=== PATIENT | male | born 1960 | race Caucasian/White ===

== ENCOUNTER 2024-03-10 20:34 | Inpatient (IN) | payer OTHER ==
--- OUTSIDE RECORDS SUMMARY | 2024-03-10 20:37 | XMS REPORT | Continuity of Care Document ---
Author Name Unknown Address [address] [facility] [address] [place] [address] [facility] thconnect Address [address] [facility] [address] [place] [address] Care Team Providers Care Ticket Maker Name Role Phone [phone] Primary Care Physician Unavailab le SYSTEM, PROVIDER NOT IN Attending Clinician Unav ailable Campaigns, Generic Provider Attending Clinician Unavailable EILEEN AHN Attending Clinician Unavailable NEYMAR SIM Attending Clinician Unavailable EILEEN AHN Admitting Clinician Unavailable Payers Payer Name Policy Type Policy Number Effective Date Expirati on Date Source [id number] 2015 00:00:00 [facility] [id number] 2000 00:00:00 Problems Condition Name Condition Details Condition Category Status Onset Date Resolution Date Last Treatment Date Treating Clinician Comments Source Obesity (BMI 30.0-34.9) Obesity (BMI 30.0-34.9) Disease Active 8-30 00:00: 00 [facility] Hypertensi on Hypertensi on Disease Active 1-04 00:00: 00 Overview: Formattin g of this note might be different from the original. Last Assessmen t & Plan: He reports near normal BP at home. Continue present treatment and will observe for any trend in future visits. [facility] Mild persistent asthma without complicati on Mild persistent asthma without complicati on Disease Active 9-16 00:00: 00 Overview: Formattin g of this note might be different from the original. Last Assessmen t & Plan: Presently sounds fine but based on his complaint of very frequent chest tightness and occasiona l wheezing over the past months will have him start daily QVAR inhalatio ns. He will bulk picker another albuterol inhaler also. 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 Last Assessmen t & Plan: Formattin g of this note might be different from the original. Diabetes is worsening . Reminded to bring in blood sugar diary at next visit. Dietary recommend ations for ADA diet. Regular aerobic exercise. Discussed foot care. Reminded to get yearly retinal exam. diabetic educator referral. Nutrition ist referral. Diabetes will be reassesse d in 1 month. [facility] Seasonal allergies Seasonal allergies Disease Active 09-12 00:00: 00 Overview: Formattin g of this note might be different from the original. Last Assessmen t & Plan: For now he will discontin ue the claritin and see if symptoms re-emerge . [facility] Nicotine dependence Nicotine dependence Disease Active 07-15 00:00: 00 [facility] Panic disorder with agoraphobi a Panic disorder with agoraphobi a Disease Active 07-15 00:00: 00 [facility] Generalize d osteoarthr itis Generalize d osteoarthr itis Disease Active 07-19 00:00: 00 [facility] Sleep apnea, obstructiv e Sleep apnea, obstructiv e Disease Active 07-19 00:00: 00 [facility] Mixed hyperlipid emia Mixed hyperlipid emia Disease Active 07-10 00:00: 00 Overview: Formattin g of this note might be different from the original. Last Assessmen t & Plan: There is some question as to whether he was on atorvasta tin in the past but based on low HDL and high LDL (146) will start Atorvasta tin 20mg now. [facility] Vitamin D3 deficiency Vitamin D3 deficiency Disease Active - 00:00: 00 Overview: Formattin g of this note might be different from the original. Last Assessmen t & Plan: Formattin g of this note might be different from the original. Recommend vitamin D3 4000 units per day for 3 months than decrease to maintenan ce dose of 2000 units per day, will repeat annually. [facility] History of papillary adenocarci noma of thyroid History of papillary adenocarci noma of thyroid Disease Active 2009-04 2- 00:00: 00 [facility] Allergies, Adverse Reactions, Alerts Allergy Name Allergy Type Status Severity Reaction(s) Onset Date Inactive Date Treating Clinician Comments Source NO KNOWN ALLERGIE S Drug Class Active [facility] Social History Social Habit Start Date Stop Date Quantity Comments Source History of tobacco use Smokes tobacco daily [facility] Tobacco use and exposure 2019-08-26 00:00:00 2019-08-26 00:00:00 Smokeless tobacco non-user [facility] History of Social function 2019-08-26 00:00:00 2019-08-26 00:00:00 [facility] Sex Ass[birth year] At 1960 00:00:00 1960 00:00:00 [facility] Smoking Status Start Date Stop Date Source Smokes tobacco daily 2019-08-26 00:00:00 [facility] Medications Ordered Medication Name Filled Medication Name Start Date Stop Date Current Medication? Ordering Clinician Indication Dosage Frequency Signature (SIG) Comments Components Source KCL (KLOR-CON M20) tablet 20 mEq 08-02 14:00: 00 Yes 20meq 20 mEq, Oral, DAILY, First dose on Sun08/03/23 at 0900, Until Discontinu ed, Routine [facility] iopamidol (ISOVUE 370-500 mL) injection 85 mL 08-01 21:00: 00 08-01 21:00 :00 No [id number] 85mL 85 mL, Intravenou s, ONCE, 1 dose, On Sary 08/02/23 at 1600, Routine [facility] sodium chloride (NS) injection 5 mL 08-01 18:35: 54 Yes 5mL 5 mL, Intravenou s, PRN, Starting on Sary 08/02/23 at 1335, Until Discontinu ed, Routine, IV line flushing [facility] amoxicillin -clavulanat e 875-125 mg per tablet 08-31 00:00: 00 Yes [id number] 1{tbl} Take 1 tablet by mouth every 12 (twelve) hours. [facility] atorvastati n 10 mg tablet 12-18 00:00: 00 Yes 1 (one) time each day at the same time. [facility] amLODIPine 10 mg tablet 2017-04 00:00: 00 Yes Take 1 tab daily for blood pressure [facility] levothyroxi ne (SYNTHROID) 112 mcg tablet 2016-04 00:00: 00 Yes Take 2-tablet(s ) 6-days per week and take 1-tablets( s) 1-days per week [facility] metFORMIN 500 mg tablet 10-12 00:00: 00 Yes every 12 (twelve) hours. [facility] Vital Signs Vital Name Observation Time Observation Value Comments S ource Systolic blood pressure 2023-08-02 20:23:00 157 mm[Hg] [facility] Diastolic blood pressure 2023-08-02 20:23:00 94 mm[Hg] [facility] Heart rate 2023-08-02 20:23:00 65 /min [facility] Respiratory rate 2023-08-02 20:23:00 16 /min [facility] Oxygen saturation in Arterial blood by Pulse oximetry 2023-08-02 20:23:00 98 /min [facility] Body temperature 2023-08-02 18:35:00 36.61 Karla [facility] Body height 2023-08-02 18:35:00 177.8 cm [facility] Body weight 2023-08-02 18:35:00 97.886 kg [facility] BMI 2023-08-02 18:35:00 30.96 kg/m2 [facility] Procedures Procedure Date / Time Performed Performing Clinicia n Source CT ABDOMEN PELVIS W CONTRAST 2023-08-02 20:04:04 Eileen Ahn [facility] LIPASE 2023-08-02 19:10:00 Eileen Ahn [facility] PROSTATIC SPECIFIC ANTIGEN 2023-08-02 19:10:00 Eileen Ahn [facility] COMP. METABOLIC PANEL (00571) 2023-08-02 19:10:00 Eileen Ahn [facility] CBC WITH DIFF 2023-08-02 19:10:00 [facility] 2023-08-02 19:10:00 Eileen Ahn [facility] Encounters Start Date/Time End Date/Time Encounter Type Admission Type Attending Clinicians Care Facility Care Department Encounter ID Source 2021-02-20 18:18:27 Emergency [facility] [id number] [facility] 2020-08-24 15:00:09 Outpatient SYSTEM, PROVIDER CYR[facility] BRIDGES [id number] MD Moses payne 2023-08-15 00:00:00 2023-08-15 00:00:00 Letter (Out) Campaigns, Generic Provider [facility] 1..840.114 [id number] [facility] 2023-08-02 13:39:00 2023-08-02 16:19:00 Emergency X EILEEN AHN [facility] ERT [id number] [facility] 2023-08-02 13:39:00 2023-08-02 16:19:00 Emergency Eileen Ahn [facility] 1..840.114 [id number] [facility] 2023-08-02 13:20:00 2023-08-02 13:20:00 Outpatient R [facility] [id number] [facility] 2020-08-23 16:03:38 2020-08-23 16:36:32 Outpatient NEYMAR SOLIS [facility] [id number] MD Moses payne 2020-08-09 13:17:06 2020-08-09 23:59:00 Outpatient NEYMAR SOLIS [facility] [id number] MD Moses payne 2020-08-09 13:29:17 2020-08-09 13:29:17 Outpatient NEYMAR SOLIS [facility] [id number] MD Moses payne 2019-08-26 11:40:00 2019-08-26 11:40:00 Outpatient R [facility] [id number] [facility] Results Test Description Test Time Test Comments Results Result Co mments [facility] [id number] 20:30:13CT Abdomen and Pelvis with intravenous contrast. CLINICAL HISTORY: Nausea and vomiting. DOSE: Up-to-date CT equipment and radiation dose reduction techniques wereemployed. CTDIvol: ?11.83 mGy. DLP: 629.58 ?mGy-cm. TECHNIQUE : Contiguous axial imaging from the level of the lung basesthrough the pubic symphysis were performed after the uncomplicatedadministration of nonionic contrast material. ?Coronal and sagittalreconstructions were obtained. Auto mA and/or iterative reconstruction wereused to reduce radiation dose. FINDINGS: ?Comparison is being made with 08/31/2020 CT studies. Lower lungs: Clear. No pleural effusion or pericardial effusion. Probablesmall, sliding-type hiatal hernia. Liver,Gallbladder and Spleen: Liver is enlarged, 20.1 cm in length andshowed stable subcentimeter hypodense lesion in the anterior upper rightlobe of the liver, consistent with small cysts. Spleen is also slightlyenlarged, 13.5 x 4 cm in size. Gallbladder showed no CT detectableabnormalities. Biliary ducts and the pancreatic duct appear of normal size. Peritoneum: ?No free air or free fluid. No lymphadenopathy. Pancreas and Adrenals: ?Unremarkable pancreas. Both adrenal gland showednodular hypertrophy, unchanged. Kidneys and Ureters: 2 mm stone noted in the upper pole of the rightkidney, a new finding since 2020 study. No hydroureter or hydronephrosis.Multiple subcentimeter hypodense lesions in the upper left kidney, 13 mmhypodense lesion in the midportion of the left kidney, 13 mm hypodenselesion in the anterior interpolar cortex of the right kidney, 6 mm and 3 mmhypodense lesion in the lateral cortex of the right kidney are allunchanged. Vessels: Tortuous aorta and iliac arteries with mild diffuseatherosclerosis. Retroperitoneum: No abnormal fluid or lymphadenopathy. Bowel: ?Constipation, generalized diverticulosis of large bowel, moresevere involving sigmoid colon with thickened todd of the sigmoid colonnoted which could be due to recurrent diverticulitis. Adjacent to theventral surface of sigmoid colon, there is an unusual 4.5 cm sizeabnormality, with central portion filled with air bubbles surrounded bythick capsule and mild congestion of the surrounding fat. Bladder and Reproductive Organs: ?Enlarged prostate noted with central zonecalcifications. Grossly unremarkable unopacified urinary bladder. Bones: ?Moderate degenerative disc disease at L4-L5 with vacuum phenomenonin the disc material and disc osteophyte complex encroaching the spinalcanal causing mild spinal andleft foraminal stenosis. Lower thoracicdegenerative spondylosis. No aggressive bone lesions. Soft tissues: Small, diabetic-type fat-containing left inguinal herniasuspected. CONCLUSION:1. Generalizeddiverticulosis of the large bowel, more severe affectingsigmoid colon with thickened todd of the si gmoid colon, likely secondaryto recurrent episodes of diverticulitis. There is an unusual largediverticulum on the ventral surface of the sigmoid colon with thick walland congestion of the pericolonic fat. Findings are likely secondary torecurrent acute diverticulitis.2. Hepatosplenomegaly with hepatic steatosis.3. Nonobstructing 2 mm stone in the upper left kidney.[facility] [id number] 19:46:38* Test Item Value Reference Range Interpretation Comme nts NA (test code = 3668616888) 139 mmol/L 135-145 K (test code = 0021536503) 3.3 mmol/L 3.5-5.0 L CL (test code = 2456364562) 104 mmol/L 98-108 CO2 TOTAL (test code = 7296699649) 24 mmol/L 23-31 AGAP (test code = 9066750874) 11 2-16 BUN (test code = 2116531716) 13 mg/dL 7-23 GLUCOSE (test code = 2100372328) 116 mg/dL 70-110 H CREATININE (test code = 2160-0) 0.84 mg/dL 0.60-1.25 TOTAL BILI (test code = 1858465289) 0.8 mg/dL 0.1-1.1 CALCIUM (test code = 1041407863) 9.0 mg/dL 8.6-10.6 T PROTEIN (test code = 0346680683) 7.8 g/dL 6.3-8.2 ALBUMIN (test code = 1336937678) 4.4 g/dL 3.5-5.0 ALK PHOS (test code = 4353802980) 100 U/L 34-122 ALTv (test code = 1742-6) 25 U/L 5-50 AST(SGOT) (test code = 9964786932) 44 U/L 13-40 H eGFR (test code = 22099-1) 98.6 mL/min/1.73m2 CKD-EPI eGFR (2020). Assuming creatinine has been stable day-to-day for at least three months, the eGFR indicates Category G1 (>= 90 mL/min/1.73 m2) Lab Interpretation (test code = 54029-1) Abnormal [facility], [id number] 19:46:17* Test Item Value Reference Range Interpretation Comme nts LIPASE (test code = 5515787994) 79 U/L 0-220 Lab Interpretation (test cod e = 98727-9) Normal [facility] with [id number] 19:30:14* Test Item Value Reference Range Interpretation Comme nts WBC (test code = 6690-2) 15.81 4.20-10.70 H RBC (test code = 789-8) 4.91 4.26-5.52 HGB (test code = 718-7) 15.2 g/dL 12.2-16.4 HCT (test code = 4544-3) 44.3 % 38.4-49.3 MCV (test code = 787-2) 90.2 fL 81.7-95.6 MCH (test code = 785-6) 31.0 pg 26.1-32.7 MCHC (test code = 786-4) 34.3 g/dL 31.2-35.0 RDW-SD (test code = 77941-6) 47.6 fL 38.5-51.6 RDW-CV (test code = 788-0) 14.5 % 12.1-15.4 PLT (test code = 777-3) 292 150-328 MPV (test code = 11891-4) 10.3 fL 9.8-13.0 NRBC/100 WBC (test code = 0922639891) 0.0 0.0-10.0 NRBC x10^3 (test code = 7071070602) See_Comment [Automated message] The system which generated this result transmitted reference range: 10*3/?L. The reference range was not used to interpret this result as normal/abnormal. GRAN MAT (NEUT) % (test code = 770-8) 85.9 % IMM GRAN % (test code = 7885189294) 0.60 % LYMPH % (test code = 736-9) 8.3 % MONO % (test code = 5905-5) 4.2 % EOS % (test code = 713-8) 0.6 % BASO % (test code = 706-2) 0.4 % GRAN MAT x10^3(ANC) (test code = 8320255053) 13.55 10*3/uL 1.99-6.95 H IMM GRAN x10^3 (test code = 9571310508) 0.10 10*3/uL 0.00-0.06 H LYMPH x10^3 (test code = 731-0) 1.32 10*3/uL 1.09-3.23 MONO x10^3 (test code = 742-7) 0.67 10*3/uL 0.36-1.02 EOS x10^3 (test code = 711-2) 0.10 10*3/uL 0.06-0.53 BASO x10^3 (test code = 704-7) 0.07 10*3/uL 0.01-0.09 Lab Interpretation (test code = 79126-6) Abnormal [facility] Notes Date/Time Note Provider Source 2023-08-02 16:15:02 Pt discharged with diagnosis of abdominal pain, diverticulosis, nephrolithiasis, and hepatosplenomegaly. Printed and verbal instructions reviewed with and given to patient. No new prescriptions given for this visit. Pt verbalized understanding of teaching and recommended follow-up. Denies questions or concerns at this time. Pt ambulatory at discharge. Appears in no apparent distress. No ataxia noted. Accompanied by spouse. Patricia Tyson RN [facility] 2023-08-02 15:06:34 Lab notified of stat add-on for Prostatic Specific Antigen. [facility] 2023-08-02 13:35:09 Patient reports that he has a hx of diverticulitis and has been having abdominal pains for a month and a half. States that the pain increased over the past 3 days. Reports nausea Reports that he has been taking antibiotics that he got in [place] - Cefixime tablets for the past 6 days Patti Lambert RN [facility]
--- NOTE | 2024-03-10 21:50 | RAD REPORT ---
EXAM: Right upper quadrant ultrasound. CLINICAL HISTORY: ABD PAIN COMPARISON: None. FINDINGS: Gallbladder: 4 mm gallbladder follow-up versus adherent stone. Bile ducts: No intrahepatic or extrahepatic biliary dilatation. Common bile duct measures 4 mm. Limited imaging of the liver shows no concerning finding. IMPRESSION: Small gallbladder polyp versus adherent stone. No finding to indicate acute cholecystitis.
[2024-03-10] MEDS ORDERED: MORPHINE 4 MG/ML SYR ONE (22:00)
[2024-03-10] MEDS ORDERED: METOCLOPRAMIDE 10 MG/2mL INJ ONE (22:00)
[2024-03-10] MEDS ORDERED: ONDANSETRON 4 MG/2 ML VIAL ONE (22:00)
[2024-03-10] MEDS ORDERED: FAMOTIDINE 20 MG/2 ML VIAL IV ONE (22:01)
[2024-03-10] MEDS ORDERED: NA CHLORIDE 0.9% 1,000 ML ONE (22:01)
[2024-03-10 22:55] LABS: Absolute Eosinophils 0.1 K/uL (0-0.5); Absolute Monocytes 0.8 K/uL (0.1-1.3); Absolute Neutrophil 14.3 K/uL (1.8-8.0); Basophils % 0.2 % (0-1.3); Eosinophils % 0.5 % (0-4.4); Hematocrit 39.7 % (39.6-49.0); Hemoglobin 13.9 g/dL (13.6-17.9); Lymphocytes % 6.1 % (15.3-44.8); MCH 31.1 pg (27.0-35.0); MCV 88.9 fL (80-100); MPV 8.3 fL (7.6-11.3); Monocytes % 4.7 % (3.3-12.3); Neutrophils % 88.5 % (41.7-73.7); Platelets 248 thou/uL (152-406); RBC Red Blood Cell Count 4.46 M/uL (4.33-5.43); Red Cell Distribution Width 14.3 % (12.1-15.2)
[2024-03-10 22:56] LABS: Specific Gravity 1.015 (1.005-1.030); Sqamous Epithelial <5 /HPF (None Seen); Urine Bacteria None Seen /HPF (<20); Urine Bilirubin NEGATIVE (Negative); Urine Blood 1+ (Negative); Urine Clarity Turbid (Clear); Urine Color Yellow (Yellow); Urine Culture Reflex Order NOT NEEDED; Urine Glucose NEGATIVE (Negative); Urine Ketones NEGATIVE (Negative); Urine Microscopic Reflex YN ORDER UMIC; Urine Mucus Slight /HPF (None Seen); Urine Nitrite NEGATIVE (Negative); Urine Protein TRACE (Negative); Urine Urobilinogen Normal (Normal); Urine WBC <5 /HPF (<5)
[2024-03-10 23:13] LABS: Albumin 3.1 g/dL (3.4-5.0); Albumin/Globulin Ratio 0.8 (1.1-1.8); Anion Gap 7.8 mEq/L (5.0-15.0); Bilirubin Total 1.2 mg/dL (0.2-1.0); Globulin 3.8 g/dL (2.3-3.5); Potassium 2.8 mEq/L (3.5-5.1); Protein, Total 6.9 g/dL (6.4-8.2)
[2024-03-10 23:45] LABS: Band Neutrophils 5 % (0-1); Differential Total Cells Count 100; Lymphocytes 6 % (15-42); Monocytes 4 % (0-10); Segmented Neutrophils 85 % (40-80)
[2024-03-10 23:46] LABS: Blood Morphology Comment NOT SEEN (NOT SEEN); Platelet Estimate ADEQ
[2024-03-11] MEDS ORDERED: MORPHINE 4 MG/ML SYR ONE (00:32)
[2024-03-11] MEDS ORDERED: CEFTRIAXONE 1000 MG/VIAL ONE (00:32)
[2024-03-11] MEDS ORDERED: NA CHLORIDE 0.9% 1,000 ML ONE (00:32)
[2024-03-11] MEDS ORDERED: NA CHLORIDE 0.9% 50 ML ONE (00:33)
[2024-03-11] MEDS ORDERED: METRONIDAZOLE 500mg IVPB 500 MG/100 ML BAG IV ONE (00:33)
[2024-03-11] MEDS ORDERED: KCL 20 MEQ/100 mL IVPB 100 ML IV ONE (00:33)
--- NOTE | 2024-03-11 01:22 | RAD REPORT ---
CLINICAL HISTORY: ABDOMINAL DISTENTION COMPARISON: None. TECHNIQUE: CT CHEST ABDOMEN PELVIS WITH IV CONTRAST on 03/10/2024 9:14 PM SPECIALIZED LANGUAGE INSTRUCTOR. MIPS reconstructions w ere generated. This exam was performed according to our departmental dose-optimization program, which includes autom ated exposure control, adjustment of the mA and/or kV according to patient size and/or use of iterative reconstruction technique. FINDINGS: Vascular: Thoracic aorta is normal in course and caliber without aneurysm or dissection. Pulmonary ar teries are adequately opacified without acute or chronic filling defects. Abdominal aorta is normal in course and caliber without aneurysm. Pelvic arteries are patent without aneurysm or occlusion. Chest: The heart is normal in size. There is no pericardial effusion. Intrathoracic lymph nodes are n ot enlarged. There is mild right hydronephrosis. Central airways are patent. There is moderate upper lung centrilo bular and paraseptal emphysema. Abdomen: The liver is normal in appearance. There is no biliary dilatation. Gallbladder is normally d istended. The pancreas and spleen are normal in appearance. Adrenal glands are globular without a focal mass. There is a 2 mm upper pole left renal calculus. There are several scattered bilateral maria a al cysts measuring up to 13 mm. There is no free air. There is no retroperitoneal adenopathy. Pelvis: There is extensive thickening of much of the mid sigmoid colon with multiple diverticula in t he area as well as mild associated inflammation. There is a large diverticulum projecting superiorly measuring almost 4 cm. Urinary bladder is unremarkable. There is no free fluid. Skeleton: There are no acute osseous findings. No suspicious bony lesions. IMPRESSION: Extensive thickening of the mid sigmoid colon with multiple diverticula in the area. This could repre sent diverticulitis, although underlying mass is not excluded. Recommend colonoscopy. Mild right hydronephrosis without obstructing calculus. Bosniak I benign renal cyst measuring 1.3 cm. No follow-up imaging is recommended. JACR 2018 May; 264-273, Management of the Incidental Renal Mass on CT, [employer] 2020; 814-848, B osniak Classification of Cystic Renal Masses, Version 2019. Electronically signed by: Alexys Phillips MD 03/11/2024 01:15 AM SPECIALIZED LANGUAGE INSTRUCTOR RP Due to temporary technical issues with the PACS/[employer] reporting system, reports are being arianne d by the in-house radiologist without review as a courtesy to ensure prompt reporting the interpreting radiologist is fully responsible for the content of the report. Transcribed Date/Time: 03/11/2024 1:21 AM
--- NOTE | 2024-03-11 02:12 | EDPHYS ---
Physician Documentation [facility] Name: Adrian Cole Age: 63 yrs Sex: Male : 1960 Arrival Date: 03/10/2024 Time: 20:34 Bed 14 Private MD: ED Physician Melchor Santos HPI: 03/10 20:58 This 63 yrs old Male presents to ER via Ambulatory with complaints of sp4 Abdominal Pain. 21:17 Patient is a very pleasant 61-year-old male with history of thyroid cancer, diabetes, sp4 hypertension, diverticulitis, patient presents with complaint of 6 months of decreased appetite sporadic vomiting and weight loss of 45 pounds over the past 6 months. Patient was at [facility] 4 months ago was CAT scan and reported that he has noncancerous kidney lesions. . 21:17 Patient reports that when he eats he develops right lower abdominal pain associated sp4 with vomiting. And this happens every day. Patient reports history of hiatal hernia prior history of diverticulitis.. Historical: - Allergies: 20:54 No Known Allergies; tm6 - PMHx: 20:54 Diabetes - NIDDM; Hypertension; Diverticulitis; lesions on kidney; tm6 - Immunization history:: Client reports receiving the 2nd dose of the Covid vaccine. - Infectious Disease History:: Denies. - Social history:: Smoking status: Patient reports the use of cigarette tobacco products, smokes one pack cigarettes per day. Patient uses Patient/guardian denies using alcohol. - Family history:: not pertinent. ROS: 21:17 Constitutional: Negative for fever, chills, and weight loss, positive loss of appetite, sp4 positive vomiting, positive for right lower quadrant abdominal pain, 21:17 All other systems are negative, Exam: 21:20 Constitutional: This is a well developed, well nourished patient who is awake, alert, sp4 and in no acute distress. Head/Face: Normocephalic, atraumatic. Eyes: Pupils equal round and reactive to light, extra-ocular motions intact. Lids and lashes normal. Conjunctiva and sclera are not injected. Cornea within normal limits. Periorbital areas with no swelling, redness, or edema. ENT: Nares patent. No nasal discharge, no septal abnormalities noted. Tympanic membranes are normal and external auditory canals are clear. Oropharynx with no redness, swelling, or masses, exudates, or evidence of obstruction, uvula midline. Mucous membranes moist. Neck: Trachea midline, no thyromegaly or masses palpated, and no cervical lymphadenopathy. Supple, full range of motion without nuchal rigidity, or vertebral point tenderness. Chest/axilla: Normal chest wall appearance and motion. Nontender with no deformity. No lesions are appreciated. Cardiovascular: Regular rate and rhythm with a normal S1 and S2. No gallops, murmurs, or rubs. Normal PMI, no JVD. No pulse deficits. Respiratory: Lungs have equal breath sounds bilaterally, clear to auscultation and percussion. No rales, rhonchi or wheezes noted. No increased work of breathing, no retractions or nasal flaring. Abdomen/GI: Soft, with normal bowel sounds. No distension or tympany. No guarding or rebound. No evidence of tenderness throughout. Back: No spinal tenderness. No costovertebral tenderness. Skin: Warm, dry with normal turgor. Normal color with no rashes, no lesions, and no evidence of cellulitis. MS/ Extremity: Pulses equal, no cyanosis. Neurovascular intact. Full, normal range of motion. Neuro: Awake and alert, GCS 15, oriented to person, place, time, and situation. Cranial nerves II-XII grossly intact. Motor strength 5/5 in all extremities. Sensory grossly intact. Psych: Awake, alert, with orientation to person, place and time. Behavior, mood, and affect are within normal limits Vital Signs: 20:53 Pulse 17; Temp 98.3(O); Weight 90.72 kg; Height 5 ft. 10 in. ; Pain 8/10; tm6 20:55 BP 159 / 94; Pulse 74; Pulse Ox 100% on R/A; MAP 113 mmHg; tm6 22:36 BP 169 / 96; Pulse 67; Resp 19; Temp 99.4(O); Pulse Ox 98% on R/A; Pain 8/10; mt4 23:00 BP 151 / 88; Pulse 65; Resp 18; Pulse Ox 93% on R/A; mt4 03/11 00:30 BP 145 / 86; Pulse 68; Resp 15; Pulse Ox 96% ; Pain 7/10; mt4 02:00 BP 153 / 87; Pulse 63; Resp 17 S; Pulse Ox 97% on R/A; mt4 04:30 BP 157 / 87; Pulse 65; Pulse Ox 94% on R/A; mt4 03/10 20:53 Body Mass Index 28.70 (90.72 kg, 177.8 cm) tm6 03/10 20:53 Pain Scale: Adult tm6 22:36 Pain Scale: Adult mt4 03/11 00:30 Pain Scale: Adult mt4 [place] Coma Score: 03/10 21:20 Eye Response: spontaneous(4). Motor Response: obeys commands(6). Verbal Response: sp4 oriented(5). Total: 15. 22:36 Eye Response: spontaneous(4). Motor Response: obeys commands(6). Verbal Response: mt4 oriented(5). Total: 15. MDM: 20:59 Medical Screening Exam initiated sp4 21:21 Differential diagnosis: cholecystitis, Cholelithiasis, diverticulitis, gastritis, sp4 Hepatitis, pancreatitis. Data reviewed: vital signs, nurses notes, lab test result(s), radiologic studies, CT scan, ultrasound. 03/11 00:25 ED course: EXAM: Right upper quadrant ultrasound. CLINICAL HISTORY: ABD PAIN sp4 COMPARISON: None. FINDINGS: Gallbladder: 4 mm gallbladder follow-up versus adherent stone. Bile ducts: No intrahepatic or extrahepatic biliary dilatation. Common bile duct measures 4 mm. Limited imaging of the liver shows no concerning finding. IMPRESSION: Small gallbladder polyp versus adherent stone. No finding to indicate acute cholecystitis. . 02:03 ED course: CLINICAL HISTORY: ABDOMINAL DISTENTION COMPARISON: None. 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 MIPS reconstructions were generated. This exam was performed according to our departmental dose-optimization program, which includes automated exposure control, adjustment of the mA and/or kV according to patient size and/or use of iterative reconstruction technique. FINDINGS: Vascular: Thoracic aorta is normal in course and caliber without aneurysm or dissection. Pulmonary arteries are adequately opacified without acute or chronic filling defects. Abdominal aorta is normal in course and caliber without aneurysm. Pelvic arteries are patent without aneurysm or occlusion. Chest: The heart is normal in size. There is no pericardial effusion. Intrathoracic lymph nodes are not enlarged. There is mild right hydronephrosis. Central airways are patent. There is moderate upper lung centrilobular and paraseptal emphysema. Abdomen: The liver is normal in appearance. There is no biliary dilatation. Gallbladder is normally distended. The pancreas and spleen are normal in appearance. Adrenal glands are globular without a focal mass. There is a 2 mm upper pole left renal calculus. There are several scattered bilateral renal cysts measuring up to 13 mm. There is no free air. There is no retroperitoneal adenopathy. Pelvis: There is extensive thickening of much of the mid sigmoid colon with multiple diverticula in the area as well as mild associated inflammation. There is a large diverticulum projecting superiorly measuring almost 4 cm. Urinary bladder is unremarkable. There is no free fluid. Skeleton: There are no acute osseous findings. No suspicious bony lesions. IMPRESSION: Extensive thickening of the mid sigmoid colon with multiple diverticula in the area. This could represent diverticulitis, although underlying mass is not excluded. Recommend colonoscopy. Mild right hydronephrosis without obstructing calculus. Bosniak I benign renal cyst measuring 1.3 cm. No follow-up imaging is recommended. Electronically signed by: Alexys Phillips MD 03/11/2024 01:15 AM [facility] . 02:11 Consideration of Admission/Observation Patient was admitted/placed on observation. sp4 Escalation of care including admission/observation considered. Management of patient was discussed with the following: Hospitalist: Ryan MARTINEZ . 05:36 ED course: Patient was advised to follow-up with Dr. Cobb after an outpatient basis sp4 for outpatient colonoscopy to investigate possible mass in the sigmoid colon.. 03/10 21:13 Order name: CBC with Diff; Complete Time: 00:21 sp4 03/10 21:13 Order name: CMP; Complete Time: 00:21 sp4 03/10 21:13 Order name: Lipase; Complete Time: 00:21 sp4 03/10 21:13 Order name: Urinalysis w/ reflexes; Complete Time: 23:09 sp4 03/10 22:58 Order name: Manual Differential; Complete Time: 00:21 EDMS 03/11 00:25 Order name: Blood Culture Adult (2) sp4 03/11 02:21 Order name: Urinalysis w/ reflexes EDMS 03/11 02:21 Order name: CBC with Automated Diff EDMS 03/11 02:21 Order name: CBC with Automated Diff EDME 03/11 02:21 Order name: Comprehensive Metabolic Panel EDME 03/11 02:21 Order name: Comprehensive Metabolic Panel EDME 03/11 02:21 Order name: Troponin High Sensitivity EDME 03/11 02:21 Order name: Troponin High Sensitivity EDMS 03/11 02:21 Order name: Troponin High Sensitivity EDMS 03/11 02:21 Order name: Troponin High Sensitivity EDME 03/11 06:41 Order name: Carcinoembryonic Antigen EDME 03/11 08:09 Order name: Glucose, Ancillary Testing EDMS 03/10 21:14 Order name: CT Chest, Abdomen, Pelvis - W/Contrast 4 03/10 21:14 Order name: US Abdomen Limited; Complete Time: 22:47 sp4 03/10 21:13 Order name: IV Saline Lock; Complete Time: 22:16 sp4 03/10 21:13 Order name: Labs collected and sent; Complete Time: 22:34 sp4 Administered Medications: 03/10 22:33 Drug: Famotidine IVP 20 mg IVP once; dilute with 10 mL 0.9% NaCl; give over 2 minutes mt4 Route: IVP; Site: right antecubital; 23:55 Follow up: Response: No adverse reaction mt4 22:34 Drug: Ondansetron IVP 4 mg IVP once; over 2 minutes Route: IVP; Site: right antecubital;mt4 23:56 Follow up: Response: No adverse reaction mt4 22:34 Drug: morphine IVP or IV 4 mg IVP once over 4 mins Route: IVP; Infused Over: 4 mins; mt4 Site: right antecubital; 23:56 Follow up: Response: No adverse reaction mt4 22:34 Drug: NS 0.9% IV 1000 ml IV at 1 bolus Per protocol; to be given as a bolus over 60 mt4 minutes Route: IV; Rate: 1 bolus; Site: right antecubital; 23:55 Follow up: Response: No adverse reaction; IV Status: Completed infusion; IV Intake: mt4 1000ml 22:34 Drug: metoCLOPramide IVP 10 mg IVP once; over 1 to 2 minutes Route: IVP; Site: right mt4 antecubital; 23:55 Follow up: Response: No adverse reaction mt4 03/11 01:03 Drug: Rocephin - Rocephin (cefTRIAXone) IVPB 1 grams IVPB once over 30 mins; (mix in 50 mt4 mL NS) Route: IVPB; Infused Over: 30 mins; Site: right hand; 01:21 Follow up: Response: No adverse reaction; IV Status: Completed infusion; IV Intake: [id number] 01:03 Drug: NS 0.9% IV 1000 ml IV at 125 ml/hr continuous Route: IV; Rate: 125 ml/hr; Site: mt4 right antecubital; :22 Follow up: Response: No adverse reaction mt4 08:54 Follow up: IV Status: Infusion continued upon admission ko1 01:03 Drug: morphine IVP or IV 4 mg IVP once over 4 mins Route: IVP; Infused Over: 4 mins; mt4 Site: right hand; : Follow up: Response: No adverse reaction mt4 01:04 Drug: Potassium Chloride IV 20 mEq IV at calculated rate once; administer over 1-2 mt4 hours Route: IV; Rate: calculated rate; Site: right antecubital; : Follow up: Response: No adverse reaction mt4 01:22 Drug: metroNIDAZOLE IVPB 500 mg 100 ml IVPB at 200 ml/hr once over 30 mins Volume: 100 mt4 ml; Route: IVPB; Rate: 200 ml/hr; Infused Over: 30 mins; Site: right hand; Disposition Summary: 03/11/24 02:11 Hospitalization Ordered Notes: Hospitalization Status: Inpatient Admission sp4 Provider: Garrison Davis spTavo Condition: Stable sp4 Problem: new sp4 Symptoms: have improved sp4 Bed/Room Type: Standard sp4 Location: Telemetry/MedSurg (Inpatient)(03/11/24 06:33) vc1 Room Assignment: [facility](03/11/24 06:33) vc1 Diagnosis - Diverticulitis of large intestine without perforation or abscess without bleeding sp4 - Acute Diverticulitis of Sigmoid colon , Intractable vomiting sp4 Forms: - Medication Reconciliation Form sp4 - SBAR form sp4 - Leadership Thank You Letter sp4 Signatures: Dispatcher [employer] EDMS Julia Hernandez RN RN vc1 Melchor Santos MD MD sp4 Lesly Gonzalez RN RN tm6 Bryan Moreno RN RN mt4 Alycia Schwartz RN ko1 Corrections: (The following items were deleted from the chart) 03/10 20:55 20:54 PSHx: lesions on kidney; tm6 tm6 21:14 21:14 CBC+H.LAB.BRZ ordered. EDMS EDMS 21:14 21:14 COMPREHENSIVE METABOLIC PANEL+C.LAB.BRZ ordered. EDMS EDMS 21:14 21:14 LIPASE+C.LAB.BRZ ordered. EDMS EDMS 21:14 21:14 Urinalysis+U.LAB.BRZ ordered. EDMS EDMS 03/11 02:50 02:11 Telemetry/MedSurg (Inpatient) sp4 vc1 02:50 02:11 sp4 vc1 06:33 02:50 BR ER HOLD vc1 vc1 06:33 02:50 ERHOLD- vc1 vc1
--- NOTE | 2024-03-11 02:12 | ER ---
Nurse's Notes [facility] Name: Adrian Cole Age: 63 yrs Sex: Male : 1960 Arrival Date: 03/10/2024 Time: 20:34 Bed 14 Private MD: Diagnosis: Diverticulitis of large intestine without perforation or abscess without bleeding;Acute Diverticulitis of Sigmoid colon , Intractable vomiting Presentation: 03/10 20:55 Chief complaint: Patient states: RLQ pain, has been off and on for months, but worsened tm6 last night. I have been to [facility], been through several rounds of antibiotics, but nothing has helped. Coronavirus screen: Client denies travel out of the [place] in the last 14 days. Ebola Screen: Patient negative for fever greater than or equal to 101.5 degrees Fahrenheit, and additional compatible Ebola Virus Disease symptoms Patient denies exposure to infectious person. Patient denies travel to an Ebola-affected area in the 21 days before illness onset. No symptoms or risks identified at this time. Initial Sepsis Screen: Does the patient meet any 2 criteria? No. Patient's initial sepsis screen is negative. Does the patient have a suspected source of infection? No. Patient's initial sepsis screen is negative. Risk Assessment: Do you want to hurt yourself or someone else? Patient reports no desire to harm self or others. Onset of symptoms is unknown. 20:55 Method Of Arrival: Ambulatory tm6 20:55 Acuity: BONNIE 3 tm6 Triage Assessment: 20:55 General: Appears uncomfortable, Behavior is calm, cooperative. Pain: Complains of pain tm6 in right lower quadrant Pain at worst was 8 out of 10 on a pain scale. Pain began on and off for months, worsening yesterday. EENT: No signs and/or symptoms were reported regarding the EENT system. Neuro: Level of Consciousness is awake, alert, obeys commands, Oriented to person, place, time, situation. Cardiovascular: Patient's skin is warm and dry. Respiratory: Airway is patent Respiratory effort is even, unlabored, Respiratory pattern is regular, symmetrical. GI: Abdomen is flat, non-distended, Reports lower abdominal pain. : No signs and/or symptoms were reported regarding the genitourinary system. Derm: No signs and/or symptoms reported regarding the dermatologic system. Musculoskeletal: No signs and/or symptoms reported regarding the musculoskeletal system. Historical: - Allergies: 20:54 No Known Allergies; tm6 - PMHx: 20:54 Diabetes - NIDDM; Hypertension; Diverticulitis; lesions on kidney; tm6 - Immunization history:: Client reports receiving the 2nd dose of the Covid vaccine. - Infectious Disease History:: Denies. - Social history:: Smoking status: Patient reports the use of cigarette tobacco products, smokes one pack cigarettes per day. Patient uses Patient/guardian denies using alcohol. - Family history:: not pertinent. Screenin:36 [facility] ED Fall Risk Assessment (Adult) History of falling in the last 3 months, mt4 including since admission No falls in past 3 months (0 pts) Confusion or Disorientation No (0 pts) Intoxicated or Sedated No (0 pts) Impaired Gait No (0 pts) Mobility Assist Device Used Yes (1 pt) Altered Elimination No (0 pt) Score/Fall Risk Level 0 - 2 = Low Risk. Abuse screen: Denies threats or abuse. Nutritional screening: No deficits noted. Tuberculosis screening: No symptoms or risk factors identified. Exposure risk/Travel Screening: None identified. Assessment: 22:36 General: Appears in no apparent distress. comfortable, Behavior is calm, cooperative, mt4 appropriate for age. Pain: Complains of pain in abdomen Pain does not radiate. Pain currently is 8 out of 10 on a pain scale. Quality of pain is described as aching, sharp, tender, Pain began 1 day ago. Is intermittent, chronic. 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 Gait is unsteady, Speech is normal, Facial symmetry appears normal. Cardiovascular: Capillary refill < 3 seconds. Respiratory: Airway is patent Respiratory effort is even, unlabored. GI: Bowel sounds present X 4 quads. Abdomen is tender to palpation in right lower quadrant Reports nausea, vomiting, since this AM. : No signs and/or symptoms were reported regarding the genitourinary system. : No signs and/or symptoms were reported regarding the genitourinary system. 22:36 Derm: No signs and/or symptoms reported regarding the dermatologic system. mt4 Musculoskeletal: Capillary refill < 3 seconds, Range of motion: intact in all extremities. Vital Signs: 20:53 Pulse 17; Temp 98.3(O); Weight 90.72 kg; Height 5 ft. 10 in. ; Pain 8/10; tm6 20:55 BP 159 / 94; Pulse 74; Pulse Ox 100% on R/A; MAP 113 mmHg; tm6 22:36 BP 169 / 96; Pulse 67; Resp 19; Temp 99.4(O); Pulse Ox 98% on R/A; Pain 8/10; mt4 23:00 BP 151 / 88; Pulse 65; Resp 18; Pulse Ox 93% on R/A; mt4 03/11 00:30 BP 145 / 86; Pulse 68; Resp 15; Pulse Ox 96% ; Pain 7/10; mt4 02:00 BP 153 / 87; Pulse 63; Resp 17 S; Pulse Ox 97% on R/A; mt4 04:30 BP 157 / 87; Pulse 65; Pulse Ox 94% on R/A; mt4 03/10 20:53 Body Mass Index 28.70 (90.72 kg, 177.8 cm) tm6 03/10 20:53 Pain Scale: Adult tm6 22:36 Pain Scale: Adult mt4 03/11 00:30 Pain Scale: Adult mt4 [place] Coma Score: 03/10 21:20 Eye Response: spontaneous(4). Motor Response: obeys commands(6). Verbal Response: sp4 oriented(5). Total: 15. 22:36 Eye Response: spontaneous(4). Motor Response: obeys commands(6). Verbal Response: mt4 oriented(5). Total: 15. ED Course: 20:45 Patient arrived in ED. jj6 20:55 Arm band placed on right wrist. tm6 20:56 Triage completed. tm6 20:58 Melchor Santos MD is Attending Physician. sp4 21:30 Radiology exam delayed due to lab results not completed at this time. (BUN/Creatinine). ls3 21:45 US Abdomen Limited In Process Unspecified. EDMS 21:56 Bryan Moreno, RN is Primary Nurse. mt4 22:36 Patient has correct armband on for positive identification. Bed in low position. Call mt4 light in reach. Side rails up X 1. Provided Education on: labs and meds. Client placed on continuous cardiac and pulse oximetry monitoring. NIBP monitoring applied. Pulse ox on. Door closed. Lights dimmed. Warm blanket given. Diet tray ordered. Verbal reassurance given. Assisted to bathroom. 23:39 CT Chest, Abdomen, Pelvis - W/Contrast In Process Unspecified. EDMS 03/11 02:10 Garrison Davis MD is Hospitalizing Provider. 4 08:05 No provider procedures requiring assistance completed. Patient admitted, IV remains in ko1 place. Administered Medications: 03/10 22:33 Drug: Famotidine IVP 20 mg IVP once; dilute with 10 mL 0.9% NaCl; give over 2 minutes mt4 Route: IVP; Site: right antecubital; 23:55 Follow up: Response: No adverse reaction mt4 22:34 Drug: Ondansetron IVP 4 mg IVP once; over 2 minutes Route: IVP; Site: right antecubital;mt4 23:56 Follow up: Response: No adverse reaction mo4 22:34 Drug: morphine IVP or IV 4 mg IVP once over 4 mins Route: IVP; Infused Over: 4 mins; mt4 Site: right antecubital; 23:56 Follow up: Response: No adverse reaction mt4 22:34 Drug: NS 0.9% IV 1000 ml IV at 1 bolus Per protocol; to be given as a bolus over 60 mt4 minutes Route: IV; Rate: 1 bolus; Site: right antecubital; 23:55 Follow up: Response: No adverse reaction; IV Status: Completed infusion; IV Intake: mt4 1000ml 22:34 Drug: metoCLOPramide IVP 10 mg IVP once; over 1 to 2 minutes Route: IVP; Site: right mt4 antecubital; 23:55 Follow up: Response: No adverse reaction mo4 03/11 01:03 Drug: Rocephin - Rocephin (cefTRIAXone) IVPB 1 grams IVPB once over 30 mins; (mix in 50 mt4 mL NS) Route: IVPB; Infused Over: 30 mins; Site: right hand; 01:21 Follow up: Response: No adverse reaction; IV Status: Completed infusion; IV Intake: [id number] 01:03 Drug: NS 0.9% IV 1000 ml IV at 125 ml/hr continuous Route: IV; Rate: 125 ml/hr; Site: mt4 right antecubital; 01:22 Follow up: Response: No adverse reaction mt4 08:54 Follow up: IV Status: Infusion continued upon admission ko1 01:03 Drug: morphine IVP or IV 4 mg IVP once over 4 mins Route: IVP; Infused Over: 4 mins; mt4 Site: right hand; :22 Follow up: Response: No adverse reaction mt4 01:04 Drug: Potassium Chloride IV 20 mEq IV at calculated rate once; administer over 1-2 mt4 hours Route: IV; Rate: calculated rate; Site: right antecubital; :22 Follow up: Response: No adverse reaction mt4 01:22 Drug: metroNIDAZOLE IVPB 500 mg 100 ml IVPB at 200 ml/hr once over 30 mins Volume: 100 mt4 ml; Route: IVPB; Rate: 200 ml/hr; Infused Over: 30 mins; Site: right hand; Medication: 08:05 VIS not applicable for this client. ko1 Intake: 03/10 23:55 IV: 1000ml; Total: 1000ml. mt4 03/11 01:21 IV: 50ml; Total: 1050ml. mt4 Outcome: 02:11 Decision to Hospitalize by Provider. sp4 08:05 Admitted to Tele accompanied by nurse, via stretcher, room 410, with chart, ko1 08:06 Condition: stable ko1 08:06 Instructed on the need for admit, 08:34 Patient left the ED. ko1 Signatures: Dispatcher [employer] EDMS Chavez Varner ls3 Aicha Leach jj6 Alycia Schwartz RN RN ko1 Melchor Santos MD MD sp4 Lesly Gonzalez RN RN tm6 Bryan Moreno RN RN mt4 Corrections: (The following items were deleted from the chart) 03/10 20:55 20:54 PSHx: lesions on kidney; tm6 tm6
--- NOTE | 2024-03-11 02:21 | P.HP ---
Certification for Inpatient Patient admitted to: Inpatient With expected LOS: >2 Midnights Practitioner: I am a practitioner with admitting privileges, knowledge of patient current condition, hospital course, and medical plan of care. Services: Services provided to patient in accordance with Admission requirements found in Title 42 Section 412.3 of the Code of Federal Regulations Patient History Date of Service: 03/11/24 Reason for admission: Abdominal Pain History of Present Illness: 63 yrs old Male with past medical history of diabetes, hypertension, diverticulosis, history of thyroid cancer came to ER with abdominal pain, and nausea and vomiting which has been going on for the last few days and was brought to ER. He states that when he eats he develops right lower abdominal pain associated with nausea and vomiting which happens almost every day recently. Has a prior history of diverticulitis. Patient complains of decreased appetite and sporadic vomiting and weight loss of nearly 45 pounds in the last 6 months. Denies any fever or chills. Denies any chest pain or shortness of breath. Pain is slightly better at the time of interview is 2 out of 10 located in lower abdomen. Patient was assessed in the ER and had CT of the abdomen pelvis with ultrasound and was suggestive of acute diverticulitis of the sigmoid region with some thickening on the sigmoid and was admitted for further management of possible diverticulitis Allergies No Known Allergies Allergy (Verified 10/30/16 01:54) Home medications list reviewed: Yes Home Medications: Amlodipine Besylate 10 mg PO DAILY 01/16/13 Levothyroxine [Synthroid*] 224 mcg PO [id number] 01/16/13 Bupropion HCl 100 mg PO BID 10/30/16 Losartan Potassium 25 mg PO DAILY 10/30/16 Metformin HCl [Glucophage*] 500 mg PO BIDWM 10/30/16 - Past Medical/Surgical History Diabetic: No Past Medical History: Reviewed- Non-Contributory -: HTN, -: thyroid cancer -: pain hands and feet -: hypothyroid Past Surgical History: Reviewed- Non-Contributory -: Parathyrodecomy -: thyroidectomy -: cyst lanced - Social History Smoking Status: Never smoker Alcohol use: No CD- Drugs: No Caffeine use: Yes Review of Systems 10-point ROS is otherwise unremarkable Physical Examination - Vital Signs Temperature: 97.2 F Blood Pressure: 128/76 Pulse: 78 Respirations: 18 Pulse Ox (%): 94 - Physical Exam General: Alert, Oriented x3, Mild distress HEENT: Atraumatic, Normocephalic Neck: Supple, No LAD Respiratory: Clear to auscultation bilaterally, Normal air movement Cardiovascular: Regular rate/rhythm, Normal S1 S2 Capillary refill: <2 Seconds Gastrointestinal: W/out hepatosplenomegaly, Tenderness Musculoskeletal: No clubbing, No swelling Integumentary: No rashes Neurological: Normal speech, Normal strength at 5/5 x4 extr, Cranial nerves 3-12 intact, Normal affect Lymphatics: No axilla or inguinal lymphadenopathy - Studies Laboratory Data (last 24 hrs) 03/10/24 03/10/24 22:10 22:10 WBC 16.20 H Hgb 13.9 Hct 39.7 Plt Count 248 Sodium 135 L Potassium 2.8 L BUN 10 Creatinine 0.96 Glucose 125 H Total Bilirubin 1.2 H AST 14 L ALT 15 L Alkaline Phosphatase 84 Lipase 30 Assessment and Plan - Plan Acute diverticulitis CT findings noted Pain control Started on IV antibiotic Will hold n.p.o. for now CT showed thickening of the colon Patient may need a colonoscopy in the near future Will get a CEA level GI consult in a.m. Hypertension Antihypertensives titrated Continue home medications and titrate as needed Hyperlipidemia Continue statin Diabetes Insulin sliding scale Accu-Chek every 6 hours Hypokalemia Potassium replaced Monitor closely on telemetry. Mild hyponatremia IV hydration Monitor electrolytes and replace accordingly GI/DVT prophylaxis Advanced directive full code Discharge Plan: Home Plan to discharge in: 48 Hours - Advance Directives Does patient have a Living Will: No Does patient have a Durable POA for Healthcare: No - Code Status/Comfort Care Code Status: Full Code Time Spent Managing Pts Care (In Minutes): 48
[2024-03-11] MEDS ORDERED: NA CHLORIDE 0.9% 1,000 ML IV SCH (03:00)
[2024-03-11] MEDS: NS KCL 40MEQ 40 MEQ/1,000 ML BAG IV SCH (03:00)
[2024-03-11] MEDS ORDERED: D10W 125 ML IV PRN (04:35)
[2024-03-11] MEDS ORDERED: GLUCAGON 1 MG/VIAL IM PRN (04:35)
[2024-03-11] MEDS ORDERED: PIPERACIL/TAZO 3.375 GM VIAL IV ONE (05:09)
[2024-03-11] MEDS ORDERED: NA CHLORIDE 0.9% 100 ML ONE (05:10)
[2024-03-11] MEDS: PIPER TAZO 3.375 GM in NA CHLORIDE 0.9% 100 ML IV SCH (05:18)
[2024-03-11] MEDS: INSULIN REGULAR (HUMAN) 100 UNIT/ML SQ SCH (07:30)
[2024-03-11] MEDS: ENOXAPARIN 40 MG/0.4 ML SQ SCH (08:50)
[2024-03-11] MEDS: KCL 20 MEQ/100 mL IVPB 100 ML IV SCH (09:22)
[2024-03-11] MEDS: NA CHLORIDE 0.9% 1,000 ML IV SCH (09:22)
[2024-03-11 09:36] LABS: Absolute Basophils 0.1 K/uL (0-0.5); Absolute Lymphocytes (CBC) 0.7 K/uL (0.7-4.9); Absolute Monocytes 0.6 K/uL (0.1-1.3); Absolute Neutrophil 9.3 K/uL (1.8-8.0); Basophils % 0.5 % (0-1.3); Eosinophils % 0.2 % (0-4.4); Hematocrit 39.6 % (39.6-49.0); Hemoglobin 13.3 g/dL (13.6-17.9); Lymphocytes % 6.2 % (15.3-44.8); MCH 30.8 pg (27.0-35.0); MCHC 33.7 g/dL (32.0-36.0); MCV 91.4 fL (80-100); MPV 8.8 fL (7.6-11.3); Monocytes % 5.4 % (3.3-12.3); Neutrophils % 87.7 % (41.7-73.7); Platelets 232 thou/uL (152-406); RBC Red Blood Cell Count 4.33 M/uL (4.33-5.43); Red Cell Distribution Width 14.5 % (12.1-15.2)
[2024-03-11 09:51] LABS: Albumin/Globulin Ratio 0.8 (1.1-1.8); Anion Gap 8.4 mEq/L (5.0-15.0); Bilirubin Total 0.8 mg/dL (0.2-1.0); Globulin 3.9 g/dL (2.3-3.5); Magnesium 2.2 mg/dL (1.6-2.4); Potassium 3.4 mEq/L (3.5-5.1); Protein, Total 6.9 g/dL (6.4-8.2)
[2024-03-11] MEDS: ONDANSETRON 4 MG/2 ML VIAL IV PRN (11:25)
[2024-03-11] MEDS: MORPHINE 2 MG/ML SYR IV PRN (11:26)
[2024-03-12 05:31] VITALS: BMI 29.5
[2024-03-12 07:16] LABS: Absolute Basophils 0.1 K/uL (0-0.5); Absolute Eosinophils 0.1 K/uL (0-0.5); Absolute Lymphocytes (CBC) 1.1 K/uL (0.7-4.9); Absolute Monocytes 1.1 K/uL (0.1-1.3); Absolute Neutrophil 11.9 K/uL (1.8-8.0); Basophils % 0.6 % (0-1.3); Eosinophils % 0.7 % (0-4.4); Hematocrit 40.5 % (39.6-49.0); Hemoglobin 13.9 g/dL (13.6-17.9); Lymphocytes % 7.4 % (15.3-44.8); MCH 30.9 pg (27.0-35.0); MCHC 34.4 g/dL (32.0-36.0); MCV 89.9 fL (80-100); Neutrophils % 83.3 % (41.7-73.7); Platelets 257 thou/uL (152-406); Red Cell Distribution Width 14.4 % (12.1-15.2)
[2024-03-12 07:23] LABS: Albumin 3.1 g/dL (3.4-5.0); Albumin/Globulin Ratio 0.8 (1.1-1.8); Anion Gap 11.4 mEq/L (5.0-15.0); Bilirubin Total 0.9 mg/dL (0.2-1.0); Globulin 4.1 g/dL (2.3-3.5); Potassium 3.4 mEq/L (3.5-5.1); Protein, Total 7.2 g/dL (6.4-8.2)
[2024-03-12] MEDS: ACETAMINOPHEN 325 MG TABLET PO PRN (07:48)
[2024-03-12] MEDS: POTASSIUM CL SA 10 MEQ TAB PO ONE (09:05)
--- NOTE | 2024-03-12 09:14 | P.PN ---
Date of Service: 03/12/24 Subjective: feeling better overall; abdominal pain and nausea improving tolerated some clear liquids today without issues last BM Sunday afternoon but passing gas. reports some difficulty initiating urine flow for last 6 months ROS: 10 point ROS as noted above, otherwise negative Physical Exam: GEN: Alert, oriented, NAD HEENT: Normal conjunctiva, sclera anicteric CV: Regular rate and rhythm, no edema ABD: soft, lower abdominal tenderness, nondistended Neuro: Normal speech, normal affect Problem List: Acute diverticulitis; recurrent Hypokalemia, Hyponatremia; mild Hypertension Hyperlipidemia NIDDM2 Acute diverticulitis; recurrent on admission, presents with worsening lower abdominal pain associated with nausea/vomiting. Reports history of recurrent diverticulitis. ~2 prior episodes this year. Last colonoscopy 6+ years ago. States he had some polyps. CT chest/abd (03/10): Extensive thickening of the mid sigmoid colon with multiple diverticula. Mild right hydronephrosis without obstructing calculus. Bosniak 1 benign renal cyst 1.3 cm. abdominal u/s (03/10): small gallbladder polyp vs adherent stone. no evidence of acute cholecystitis continue empiric zosyn (03/11-) tolerating CLD; advance to full liquids for lunch continue IV fluids for now. anticipate dc next 12-24 hours as intake improves Dr. Lynn, GI consulted would likely benefit from repeat colonoscopy in near future once this acute episode resolves. Hypokalemia, Hyponatremia; mild secondary to decreased PO intake / diarrhea continue IV fluids monitor and replete electrolytes as needed Hypertension Hyperlipidemia confirm home meds, restart as appropriate NIDDM2 accu-cheks, SSI VTE: Lovenox Code: Full Dispo: Home, 1-2 days Pending GI recs, tolerating diet without issues Time Spent Managing Pts Care (In Minutes): 55
[2024-03-12 11:01] VITALS: O2SAT 96
[2024-03-12] MEDS: hydroCHLOROthiazide 12.5 MG CAP PO ONE (15:53)
[2024-03-12] MEDS: LOSARTAN POTASSIUM 50 MG TABLET PO SCH (15:54)
[2024-03-12] MEDS: HYDROCODONE/APAP 5/325 MG TAB PO PRN (20:41)
[2024-03-13] MEDS: LEVOTHYROXINE SOD 0.112 MG TAB PO SCH (06:22)
[2024-03-13 06:53] LABS: Absolute Basophils 0.1 K/uL (0-0.5); Absolute Eosinophils 0.1 K/uL (0-0.5); Absolute Lymphocytes (CBC) 1.2 K/uL (0.7-4.9); Absolute Monocytes 0.6 K/uL (0.1-1.3); Absolute Neutrophil 5.4 K/uL (1.8-8.0); Basophils % 0.8 % (0-1.3); Eosinophils % 1.8 % (0-4.4); Hematocrit 38.9 % (39.6-49.0); Hemoglobin 13.3 g/dL (13.6-17.9); Lymphocytes % 15.9 % (15.3-44.8); MCH 30.7 pg (27.0-35.0); MCHC 34.1 g/dL (32.0-36.0); MCV 89.9 fL (80-100); MPV 8.9 fL (7.6-11.3); Monocytes % 8.6 % (3.3-12.3); Neutrophils % 72.9 % (41.7-73.7); Nucleated Red Blood Cells % 0.2 % (0-0); Platelets 249 thou/uL (152-406); RBC Red Blood Cell Count 4.33 M/uL (4.33-5.43); Red Cell Distribution Width 14.2 % (12.1-15.2)
[2024-03-13 07:20] LABS: Albumin/Globulin Ratio 0.8 (1.1-1.8); Anion Gap 8.4 mEq/L (5.0-15.0); Bilirubin Total 0.9 mg/dL (0.2-1.0); Globulin 3.9 g/dL (2.3-3.5); Magnesium 2.2 mg/dL (1.6-2.4); Potassium 3.4 mEq/L (3.5-5.1); Protein, Total 6.9 g/dL (6.4-8.2)
--- NOTE | 2024-03-13 07:49 | CON ---
Date of Consultation: 03/12/2024 Reason For Consultation: Acute sigmoid diverticulitis with right lower quadrant pain. History Of Present Illness: The patient is a 63-year-old white male with history of diabetes, hypert ension, diverticulosis, diverticulitis times at least 6, thyroid cancer status post surgery and parat hyroidectomy, constipation, and tobacco abuse. The patient reports repeated bouts of diverticulitis since the age of 51. He said he has had at least 6 to 10 bouts of diverticulitis to the ospital to be evaluated. The patient has had multiple CT showing diverticulitis. Of note, the CT sc an on this admission reveals dense diverticulosis in the sigmoid colon with acute severe thickening o f the sigmoid wall with 4 cm large diverticulum as well in that area. The patient states he has neve r been told to consider surgery as of yet. He also complains of nausea, vomiting. He has had a 40-p ound weight loss over the past 6 months, which he says is due to his postprandial midepigastric pain, nausea, and vomiting. He does get some lower abdominal right lower quadrant pain as well postprandi ally. Past Medical History: Significant for diabetes, hypertension, diverticulosis with recurrent divertic ulitis at 6 to 10 times in the past, thyroid cancer status post surgery and parathyroidectomy, consti pation past 6 months, reports of the TIA (transient ischemic attack), recently tobacco abuse. The pa chris states he does not want to quit tobacco. Allergies: NKDA. Home Medications: Include amlodipine, Synthroid, , losartan, metformin, . Social History: He is and now , with 2 biological children from prior marriage. Pos itive tobacco at least a pack per day. Occasional alcohol, 2 to 3 beers per day on occasion. Family History: Father of prostate cancer. Mother of myocarditis, thought to be induced b y the COVID vaccine as per patient and daughter in room. The patient has daughter and present a t bedside. Review of Systems: He has right lower quadrant pain. The patient states that maximum of 9/10, now 5/10, associated with some nausea and vomiting. He denies any hematochezia, coffee-grounds emesis, melena, hematochezia, hematuria, dysuria, polydipsia, hemoptysis, epistaxis, chest pain, shortness of breath, seizure, sync ope, muscle aches, joint aches, backaches. He has lost 40 pounds in the past 6 months, but denies fe vers, chills, though he does have night sweats he says since he has thyroid cancer. Physical Examination: Vital Signs: The patient is 5 feet, 9 inches, 200 pounds. BMI 29 kg/sq m. Temperature 98.4 degrees Fahrenheit, pulse 67, respirations 16, blood pressure 157/84, O2 saturation 96%. HEENT: Normocephalic, atraumatic. Anicteric. Pupils equal, round, and reactive to light. Extraocu lar movements are intact. Oropharynx is clear. Neck: Supple. No masses. Respirations: Clear to auscultation bilaterally. Cardiac: Regular rate and rhythm. Gastrointestinal: Positive bowel sounds. Soft, nontender, nondistended. No hepatosplenomegaly. He did have a little mild right lower quadrant tenderness, but otherwise negative. No rebound. No per itoneal or Turner sign. Extremities: No clubbing, cyanosis, or edema. 2+ pulses. Neuro: Alert and oriented x3. Grossly nonfocal. 5/5 motor sensation to light touch. Diagnostic Data: The patient had a white count of 14.3, down from 16.2 two days ago. Hemoglobin 13. 9 stable, hematocrit 40.5, MCV of 90, platelet count of 257; polys of 83%, 2 days ago, 89%; lymphocyt es 7%, monocytes 8%, eosinophils 0.7%. Sodium 139, potassium 3.4, chloride 107, bicarb 24, BUN of 8, creatinine of 0.9, glucose 122, calcium of 8.5, magnesium 3.2, total bilirubin 0.8, AST of 16, ALT o f 22, alkaline phosphatase 83, total protein 7.2, albumin 3.1, globulin 4.1, lipase of 30, of 3.4. UA shows turbid, 1+ blood, 5 to 10 rbc's, slight mucus, trace protein, otherwise negative. CT of chest, abdomen, and pelvis revealed extensive thickening of sigmoid colon, multiple diverticula in the area projecting superiorly measuring 4 cm. There is mild associated inflammation . Chest was unremarkable. Lymph nodes not enlarged. No pericardial effusion. Heart size remains normal. He has several renal cysts. Normal-appearing liver. Impression: 1.Acute sigmoid diverticulitis with right lower quadrant pain, maximum 9/10, now down to 5/10, assoc iated with nausea, vomiting. CT scan revealed extensive thickening of the mid sigmoid colon with inc reased diverticulosis with a 4 cm diverticulum in that area. Last colonoscopy was 15 to 20 years ago that revealed colon polyps at that time. Will need to have colonoscopy in 6 to 8 weeks. 2.40-pound weight loss over the past 6 months, which patient attributes to midepigastric pain associ ated with postprandial midepigastric pain associated with nausea, vomiting as well. We will need to investigate with EGD as an outpatient as well. 3.Postprandial midepigastric pain, nausea, vomiting for at least 6 months. 4.History of diabetes, hypertension, diverticulosis and recurrent diverticulitis 6 to 10 times in past, thyroid cancer status post surgery and parathyroidectomy, constipation past 6 months, transie nt ischemic attack, and tobacco abuse. Recommendations: 1.Continue IV fluids, IV antibiotics, and continue p.r.n. pain medications and antiemetics. 2.Diet as per Internal Medicine with clear liquids to full liquids under GI, soft liquids. 3.Colonoscopy in 6 to 8 weeks. 4.Chest x ray with CT has been done. 5.Check PSA. 6.EGD as outpatient with colonoscopy for postprandial midepigastric pain, nausea, vomiting, and sito phobia with weight loss. CHRIS/MODL Voice ID: [id number] Report ID: [id number]
[2024-03-13 08:24] VITALS: TEMP 98
[2024-03-13] MEDS: hydroCHLOROthiazide 12.5 MG CAP PO SCH (09:59)
[2024-03-13] MEDS: POTASSIUM CL SA 10 MEQ TAB PO ONE (10:00)
--- NOTE | 2024-03-13 12:11 | P.PN ---
Date of Service: 03/13/24 Subjective: ROS: 10 point ROS as noted above, otherwise negative Physical Exam: GEN: Alert, oriented, NAD HEENT: Normal conjunctiva, sclera anicteric CV: Regular rate and rhythm, no edema ABD: soft, mild lower abdominal tenderness, nondistended Neuro: Normal speech, normal affect Problem List: Acute diverticulitis; recurrent Hypokalemia, Hyponatremia; mild Hypertension Hyperlipidemia NIDDM2 Acute diverticulitis; recurrent on admission, presents with worsening lower abdominal pain associated with nausea/vomiting. Reports history of recurrent diverticulitis. ~2 prior episodes this year. Last colonoscopy 6+ years ago. States he had some polyps. CT chest/abd (03/10): Extensive thickening of the mid sigmoid colon with multiple diverticula. Mild right hydronephrosis without obstructing calculus. Bosniak 1 benign renal cyst 1.3 cm. abdominal u/s (03/10): small gallbladder polyp vs adherent stone. no evidence of acute cholecystitis continue empiric zosyn (03/11-) IVF dc'd 03/12 Dr. Lynn, GI consulted Recommend repeat colonoscopy/EGD in 6-8 weeks once acute episode resolves tolerating full liquid diet without issues Hypokalemia, Hyponatremia; mild secondary to decreased PO intake / diarrhea IVF dc'd 03/12 monitor and replete electrolytes as needed Hypertension Hyperlipidemia confirm home meds, restart as appropriate NIDDM2 accu-cheks, SSI VTE: Lovenox Code: Full Dispo: Home, 1 day Time Spent Managing Pts Care (In Minutes): 55
[2024-03-13 12:58] VITALS: BP 172/92
--- NOTE | 2024-03-14 06:40 | P.DS ---
Admission Date: 03/11/24 Discharge Date: 03/13/24 Disposition: ROUTINE DISCHARGE Discharge Condition: GOOD Reason for Admission: Abdominal Pain Hospital Course: Problem List: Acute diverticulitis; recurrent Hypokalemia, Hyponatremia; mild Hypertension Hyperlipidemia NIDDM2 Physician discharge instructions: Patient presents with worsening lower abdominal pain associated with nausea/vomiting secondary to acute diverticulitis. Patient states he has a history of diverticulitis in the past, 2 prior episodes this year and states similar symptoms to past episodes. CT chest/abdomen noted extensive thickening of the mid sigmoid colon with multiple diverticula. CT also noted Mild right hydronephrosis without obstructing calculus. Patient was medically managed with bowel rest, IV hydration, antibiotics and had improvement of his symptoms. Patient's diet was slowly advanced and patient continued to improve. Dr. Lynn, GI was consulted and recommended to continue medical management. No evidence to warrant surgical intervention at this time. Dr. Lynn recommended following up at the GI clinic in the near future and to repeat colonoscopy/EGD in 6-8 weeks to further evaluate once this acute episode resolves. Patient was feeling better, abdominal pain improving, nausea/vomiting resolved, afebrile, and was deemed stable for discharge. Recommend continuing soft food diet for next 3-5 days, and then can slowly return to more regular diverticulitis diet. Avoid fatty/greasy foods. During his hospitalization, patient reported hes been dealing with some difficulty initiating urine flow for last [address] abdomen noted mild right hydronephrosis without obstructing calculus. PSA was 3.42. Recommend following up with PCP/urology for further discussion. Patient's urinary symptoms improved during hospitalization as well. Medications: augmentin twice daily x 10 days norco as needed for pain Follow up: PCP 3-5 days GI in 2-4 weeks Please call to schedule / confirm appointments Physical Exam: GEN: Alert, oriented, NAD HEENT: Normal conjunctiva, sclera anicteric CV: Regular rate and rhythm, no edema ABD: soft, no tenderness, nondistended Neuro: Normal speech, normal affect Vital Signs/Physical Exam: Temp Pulse Resp BP Pulse Ox 98 F 56 15 172/92 H 98 03/13/24 08:00 03/13/24 09:59 03/13/24 08:00 03/13/24 12:56 03/13/24 08:00 Laboratory Data at Discharge: WBC 7.50 thou/uL (4.3-10.9) 03/13/24 06:14 Hgb 13.3 g/dL (13.6-17.9) L 03/13/24 06:14 Hct 38.9 % (39.6-49.0) L 03/13/24 06:14 Plt Count 249 thou/uL (152-406) 03/13/24 06:14 Sodium 138 mEq/L (136-145) 03/13/24 06:14 Potassium Cancelled 03/13/24 16:00 BUN 7 mg/dL (7-18) 03/13/24 06:14 Creatinine 0.78 mg/dL (0.70-1.30) 03/13/24 06:14 Glucose 114 mg/dL (74-106) H 03/13/24 08:05 Magnesium 2.2 mg/dL (1.6-2.4) 03/13/24 06:14 Total Bilirubin 0.9 mg/dL (0.2-1.0) 03/13/24 06:14 AST 36 U/L (15-37) 03/13/24 06:14 ALT 42 U/L (16-61) 03/13/24 06:14 Alkaline Phosphatase 78 U/L (45-117) 03/13/24 06:14 Lipase 30 U/L (13-75) 03/10/24 22:10 Home Medications: Levothyroxine [Synthroid*] 112 mcg PO [id number] 01/16/13 Losartan Potassium 100 mg PO DAILY 10/30/16 hydroCHLOROthiazide [Hydrochlorothiazide] 12.5 mg PO DAILY 03/11/24 Amox/Clavulanate [Augmentin 875-125 Tab] 1 tab PO BID 10 Days #20 tab 03/13/24 Hydrocodone 5/APAP 325 [Chrisney 5/325] 1 tab PO Q6H PRN #10 tab 03/13/24 New Medications: Amox/Clavulanate [Augmentin 875-125 Tab] 1 tab PO BID 10 Days #20 tab Hydrocodone 5/APAP 325 [Chrisney 5/325] 1 tab PO Q6H PRN #10 tab PRN Reason: Pain Physician Discharge Instructions: Physician discharge instructions: Patient presents with worsening lower abdominal pain associated with nausea/vomiting secondary to acute diverticulitis. Patient states he has a history of diverticulitis in the past, 2 prior episodes this year and states similar symptoms to past episodes. CT chest/abdomen noted extensive thickening of the mid sigmoid colon with multiple diverticula. CT also noted Mild right hydronephrosis without obstructing calculus. Patient was medically managed with bowel rest, IV hydration, antibiotics and had improvement of his symptoms. Patient's diet was slowly advanced and patient continued to improve. Dr. Lynn, GI was consulted and recommended to continue medical management. No evidence to warrant surgical intervention at this time. Dr. Lynn recommended following up at the GI clinic in the near future and to repeat colonoscopy/EGD in 6-8 weeks to further evaluate once this acute episode resolves. Patient was feeling better, abdominal pain improving, nausea/vomiting resolved, afebrile, and was deemed stable for discharge. Recommend continuing soft food diet for next 3-5 days, and then can slowly return to more regular diverticulitis diet. Avoid fatty/greasy foods. During his hospitalization, patient reported hes been dealing with some difficulty initiating urine flow for last [address] abdomen noted mild right hydronephrosis without obstructing calculus. PSA was 3.42. Recommend following up with PCP/urology for further discussion. Patient's urinary symptoms improved during hospitalization as well. Medications: augmentin twice daily x 10 days norco as needed for pain Follow up: PCP 3-5 days GI in 2-4 weeks Please call to schedule / confirm appointments Followup: LYNNETTE CHURCH [Primary Care Provider] - Time spent managing pt's care (in minutes): 45
== END 2024-03-13 16:34 | disposition home or self-care (01) | DRG 392 ==
LOC: ER 20:34 → ERHOLD 03-11 02:13 → 4TH 03-11 07:44
PROVIDERS: ADMIT Family Medicine; ATTEND Hospitalist
DX: K57.32 Diverticulitis of large intestine without perforation or abscess without bleeding (principal); E87.1 Hypo-osmolality and hyponatremia; N13.30 Unspecified hydronephrosis; E87.6 Hypokalemia; I10 Essential (primary) hypertension; E78.5 Hyperlipidemia, unspecified; E11.9 Type 2 diabetes mellitus without complications; F17.210 Nicotine dependence, cigarettes, uncomplicated; Z79.84 Long term (current) use of oral hypoglycemic drugs; Z79.890 Hormone replacement therapy; Z85.850 Personal history of malignant neoplasm of thyroid; Z79.899 Other long term (current) drug therapy
CPT/HCPCS: 36415; 71260; 74177; 76705; 80053; 81001; 82378; 82947; 83690; 83735; 84484; 85025; 87040; 99285; G0103; J0696; J1650; J2270; J2405; J2543; J2765; J3480; J7030; Q9967